=== PATIENT | female | born 1985 ===

== ENCOUNTER 2017-05-25 15:52 | Emergency (ER) | payer OTHER ==
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
[2017-05-25 20:11] VITALS: BP 126/66; PULSE 78; RESP 18; TEMP 98
[2017-05-25 20:12] VITALS: O2SAT 98
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
== END 2017-05-25 20:18 | disposition home or self-care (01) ==
LOC: H.ER 15:52
DX: M54.2 Cervicalgia (principal); M54.9 Dorsalgia, unspecified; V43.11XA Car passenger injured in collision with sport utility vehicle in nontraffic accident, initial encounter; Y92.410 Unspecified street and highway as the place of occurrence of the external cause